=== PATIENT | male | born 1980 | race African-American/Black ===

== ENCOUNTER 2019-05-09 16:11 | Emergency (ER) | payer MEDICAID ==
[~2019-05-09] VITALS: Ht 182.9 cm; Wt 70.0 kg
[2019-05-09 17:10] VITALS: BP 128/75
[2019-05-09] MEDS ORDERED: BACITRACIN ZINC OINT UDPKT TOP ONE (18:00)
[2019-05-09] MEDS ORDERED: IBUPROFEN 600MG TABLET PO ONE (18:00)
[2019-05-09] MEDS ORDERED: TETANUS, DIPHTHERIA, PERTUSSIS VAC/PF 0.5ML (>7YR OLD) IM ONE (18:00)
== END 2019-05-09 18:15 | disposition home or self-care (01) ==
LOC: ER 16:11
DX: S00.81XA Abrasion of other part of head, initial encounter (principal); S00.211A Abrasion of right eyelid and periocular area, initial encounter; Y04.0XXA Assault by unarmed brawl or fight, initial encounter; Y93.89 Activity, other specified; Y92.89 Other specified places as the place of occurrence of the external cause
CPT/HCPCS: 90471; 90715; 99283